=== PATIENT | female | born 1975 | race Caucasian/White ===

== ENCOUNTER 2023-08-29 01:54 | Emergency (ER) | payer BC ==
[~2023-08-29] VITALS: Ht 172.7 cm; Wt 83.9 kg
[~2023-08-29 01:54] MED LIST: FLUO10 PO; LEVSOD75 PO; MAGCIT300 PO
[2023-08-29 02:25] VITALS: BP 116/83
[2023-08-29] MEDS ORDERED: Ativan1 MG PO (02:44)
[2023-08-29] MEDS ORDERED: EUTHYROX125 MCG PO (02:45)
[2023-08-29] MEDS ORDERED: REMERON1510 PO (02:46)
[2023-08-29] MEDS ORDERED: LORA.5 (02:46)
[2023-08-29] MEDS ORDERED: EUTHYROX50 MCG PO (02:47)
== END 2023-08-29 06:00 | disposition home or self-care (01) ==
LOC: ER 01:54
DX: M79.672 Pain in left foot (principal); W18.09XA Striking against other object with subsequent fall, initial encounter; Z79.890 Hormone replacement therapy
CPT/HCPCS: 73630; 99283-25